=== PATIENT | male | born 1965 | race Caucasian/White ===

== ENCOUNTER 2016-12-29 18:15 | Emergency (ER) | payer SELFPAY ==
[~2016-12-29] VITALS: Ht 182.9 cm; Wt 75.0 kg
[2016-12-29 18:23] VITALS: BP 166/103; PULSE 90; RESP 17; TEMP 98.1; O2SAT 99
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
[2016-12-29] MEDS ORDERED: ULTR50TA5 PO (20:35)
[2016-12-29] MEDS ORDERED: IBUP800T23 PO (20:35)
[2016-12-29] MEDS ORDERED: DEXAMETHASONE SOD PHOS 20 MG/5 ML VIAL IM ONE (20:45)
== END 2016-12-29 21:15 | disposition home or self-care (01) ==
LOC: NEPD 18:15
DX: S02.2XXA Fracture of nasal bones, initial encounter for closed fracture (principal); S00.83XA Contusion of other part of head, initial encounter; Y04.2XXA Assault by strike against or bumped into by another person, initial encounter; I10 Essential (primary) hypertension
CPT/HCPCS: 70450; 70486; 96372; 99285; J1100